=== PATIENT | male | born 1955 | race African-American/Black ===

== ENCOUNTER 2018-12-28 06:00 | Day surgery (SDC) | payer BC ==
[~2018-12-28] VITALS: Ht 180.3 cm; Wt 103.9 kg
--- NOTE | ~2018-12-28 | O ---
[facility] [place] [address] OPERATIVE REPORT Name: AYANA BLOCK Room #: 150-1 [facility].#: [id number] Admission: 12/28/18 Attend Phys: Jonny Bosch MD Discharge: Date of : 57 Report #: [id number] THIS REPORT FOR: //name// CC: Sandee Bosch DATE OF SERVICE: 12/28/2018 PATIENT OF: Dr. Jonny Bosch and Dr. Sandee Whaley. PREOPERATIVE DIAGNOSIS: Ventral incisional hernia. POSTOPERATIVE DIAGNOSIS: Ventral incisional hernia. PROCEDURE: Repair of an incarcerated ventral incisional hernia. SURGEON: Jonny Bosch MD. ANESTHESIA: Local IV sedation. DESCRIPTION OF PROCEDURE: The patient was brought to the operating room and placed on operative table in the supine position. Sequential compression devices were in place for DVT prophylaxis. There was no indication for preoperative antibiotics. Skin and subcutaneous tissue around the area was then infiltrated with 0.5% Marcaine and 1% Xylocaine in a 1:1 mixture. A transverse supraumbilical skin incision was performed through the previous incision scar using #15 scalpel blade. Hemostasis obtained using electrocautery. Dissection was carried down through the subcutaneous tissue to the incarcerated hernia sac, which was dissected free. There was some incarcerated preperitoneal fat that was dissected free and reduced back into the abdomen. The fascial defect was then closed easily with interrupted [id number] #1 Prolene sutures. The umbilicus was then tacked to the fascia using simple interrupted 2-0 chromic sutures. Deep and superficial subcutaneous tissue were then reapproximated using simple interrupted 2-0 chromic sutures and the skin then closed with a running 4-0 subcuticular Vicryl stitch. The wound was then dressed with Dermabond, Telfa, 4 x 4 gauze, sponge and tape. The patient was then taken to the recovery room, awake, alert and in good condition. Estimated blood loss was approximately 5 mL and the patient tolerated procedure well. All sponge, lap and instrument counts correct x 2. By: [id number] oJnny Bosch MD /nt
[~2018-12-28 06:00] MED LIST: BACTRIM DS TAB1 EACH PO; CHLORTHALIDONE25 MG PO; ERGOCALCIF50000 UNIT PO; FENOFIBRATE160 MG PO; KEFLEX500 MG PO; LIPITOR40 MG PO; LISINOPRIL10 MG PO; METFORMIN HCL500 MG PO; TRAMADOL 50 MG50 MG PO
[2018-12-28 07:09] VITALS: BP 150/93
[2018-12-28] MEDS ORDERED: NORCO 5-325 TA1 EAC1 PO (08:48)
[2018-12-28 10:07] VITALS: BP 150/93
[2018-12-28 10:09] VITALS: BP 150/93
--- NOTE | 2018-12-29 08:29 | EKG ---
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
== END 2018-12-28 10:45 | disposition home or self-care (01) ==
LOC: OR 06:00 → TBA 06:01 → OR 10:45
DX: K43.0 Incisional hernia with obstruction, without gangrene (principal); F17.210 Nicotine dependence, cigarettes, uncomplicated; I10 Essential (primary) hypertension; E78.5 Hyperlipidemia, unspecified; E11.9 Type 2 diabetes mellitus without complications; Z85.46 Personal history of malignant neoplasm of prostate; Z79.899 Other long term (current) drug therapy; Z90.49 Acquired absence of other specified parts of digestive tract
CPT/HCPCS: 50010; 50101; 50386; 50417; 54118; 56524; 56525; 62110; 62850; 70005